=== PATIENT | female | born 1995 | race Caucasian/White ===

== ENCOUNTER 2021-07-24 17:19 | Emergency (ER) | payer OTHER ==
[2021-07-24] MEDS ORDERED: MUCINEX DM ER1 EACH PO (19:24)
[2021-07-24] MEDS ORDERED: IBU800 MG PO (19:24)
== END 2021-07-24 19:36 | disposition home or self-care (01) ==
LOC: ER1 17:19
DX: J32.9 Chronic sinusitis, unspecified (principal); Z86.16 Personal history of COVID-19
CPT/HCPCS: 93005; 99284